=== PATIENT | female | born 1970 | race African-American/Black ===

== ENCOUNTER 2025-04-08 09:13 | Emergency (ER) | payer OTHER, SELFPAY ==
[2025-04-08] VITALS (8 sets, daily range): BP systolic 143–228; BP diastolic 69–103; PULSE 60–80; RESP 16–18; TEMP 36.6; O2SAT 97–100; BMI 42.0
--- NOTE | 2025-04-08 09:20 | EKG12_ITS ---
Test Reason : CP Blood Pressure : */* mmHG Vent. Rate : 77 BPM Atrial Rate : 77 BPM P-R Int : 134 ms QRS Dur : 78 ms QT Int : 380 ms P-R-T Axes : 26 -13 12 degrees QTcB Int : 430 ms Normal sinus rhythm Minimal voltage criteria for LVH, may be normal variant ( R in aVL ) Cannot rule out Anterior infarct , age undetermined Abnormal ECG Confirmed by ROHAN RODRIGUEZ MD ([id number]), assistant editor ASIA SOSA ([id number]) on 04/12/2025 7:49:25 AM Referred By: Confirmed By: ROHAN RODRIGUEZ MD
--- NOTE | 2025-04-08 09:42 | EDS_ITS ---
HPI History of Present Illness Chief Complaint: Chest Pain Narrative Narrative: Patient is a 54-year-old female presenting to the emergency department for chest pain that started last night around 3 or 4 AM. Patient has a past medical history of diabetes. Denies any history of high blood pressure or hyperlipidemia. Denies any PE or DVT history. Denies any cardiac history for herself. States that the pain is midsternal. It does not radiate anywhere. She describes it as dull. She endorses some mild shortness of breath with it as well. She denies diaphoresis, nausea, vomiting. Denies any lower extremity edema. Denies abdominal pain. States that she has never had this chest pain before. She took ibuprofen. [facility] Home Medications ?Medication ?Instructions ?Recorded ?Last Taken ?Type clindamycin HCl 300 mg capsule 300 mg PO Q6H ##40 11/12 Unknown Rx (Cleocin HCl) hydrocodone-acetaminophen 5-325mg 1 - 2 tab PO Q4H PRN PRN Pain ##12 06/03/16 Unknown Rx 5mg-325mg Allergy/AdvReac Type Severity Reaction Status Date / Time No Known Allergies Allergy Verified 04/08/25 09:14 Social History Smoking Status: Current every day smoker tobacco type: e-cigarettes ROS ROS ED ROS Narrative see HPI EXAM Physical Exam Narrative Exam Narrative: Vital signs: Reviewed General: Alert and oriented x 3. No acute distress HEENT: Head is normocephalic and atraumatic, sinuses nontender, pupils equal round and reactive. Nares are patent. Oropharynx and throat exams normal. Neck: Supple without lymphadenopathy nontender Cardiovascular: Regular rate and rhythm, no murmurs. No rubs or gallops. Normal S1 and S2 Chest: No reproducible chest pain to palpation Respiratory: Clear to auscultation bilaterally. No wheezes, rales, rhonchi Abdominal: Soft and nontender. Normal bowel sounds. No guarding or rebound. Nonsurgical abdomen Extremities: No lower extremity edema. No tenderness. No bruising. Normal range of motion. Normal sensation. Skin: No rash or redness. Neurological: Cranial nerves II through XII are grossly intact. Normal strength and sensation. Normal cerebellar function The rest of the physical exam is unremarkable Const Vital Signs: 04/08/25 09:14 04/08/25 10:13 04/08/25 10:32 Temperature 97.9 F Temperature Source Oral Pulse Rate 80 80 Respiratory Rate 16 16 Blood Pressure 174/103 H 228/100 H 170/69 H Blood Pressure Mean 126 142 102 Pulse Ox 100 100 Oxygen Delivery Method Room Air Room Air 04/08/25 10:46 04/08/25 12:00 04/08/25 12:32 Temperature Temperature Source Pulse Rate 60 61 Respiratory Rate 17 Blood Pressure 188/81 H 190/76 H 174/75 H Blood Pressure Mean 116 114 108 Pulse Ox 97 100 Oxygen Delivery Method Room Air Room Air 04/08/25 13:23 04/08/25 13:40 Temperature 97.9 F Temperature Source Pulse Rate 65 72 Respiratory Rate 18 16 Blood Pressure 143/72 H 143/72 H Blood Pressure Mean 95 95 Pulse Ox 98 98 Oxygen Delivery Method Room Air Heart Score History: Slightly/Non-Suspicious ECG: Normal Age: >45 - <65 years Risk Factors: 1 or 2 Risk Factors Troponin: </= Normal Limit Score: 2 MDM MDM MDM Narrative Medical decision making narrative: Patient is a 54-year-old female presenting to the emergency department for chest pain. Patient was seen and examined. Vitals are stable. Patient resting in bed comfortably no acute distress. Patient offered analgesia but she declines. Differential includes but is not limited to: ACS, pleurisy, pneumonia, less likely PE or aortic pathology. EKG shows normal sinus rhythm with LVH. No ischemic changes noted. No dysrhythmia noted. CBC with no leukocytosis and normal hemoglobin. CMP with no significant abnormalities. Normal kidney function. Initial troponin is less than 6. Reflex less than 6. While the patient was here her blood pressure did increase to 228/100. Given her chest pain in addition to this high blood pressure reading, I will obtain additional imaging and labs to rule out any hypertensive emergency. 5 mg metoprolol IV was given and she was again offered pain medication but declined when nurse went to give the fentanyl. Urinalysis with no evidence of UTI. Urine negative. Urine drug screen negative. CT of the brain with no acute intracranial abnormality. Enlarged, empty sella turcica. This can be seen with elevated intracranial pressure such as pseudotumor cerebri or idiopathic intracranial hypertension. Correlate with physical exam, history. Patient with no current headache or visual changes. Not consistent with exam. CTA chest/abdomen/pelvis shows no arterial occlusion or significant stenosis of the chest, abdomen or pelvis. No aortic dissection. No aortic aneurysm. Several mildly prominent mesenteric and ileocecal lymph nodes are nonspecific and can be seen in the setting of mesenteric adenitis, enteritis, among others. Patient was reevaluated. Overall her workup shows no evidence of hypertensive emergency. Blood pressure is now controlled. BP of 143/72. Patient was notified of the incidental findings on CT brain and CT abdomen pelvis. Negative for causes of her chest pain. I advised patient to follow-up with her primary care doctor as soon as possible to discuss possible initiation of antihypertensives. Patient states she has a appointment this week. Patient discharged from the Emergency Department. I do not feel that the patient's evaluation reveals any acute reason for admission at this time. I instructed them to either follow-up with their primary care physician or promptly return to the Emergency Department for reevaluation should symptoms worsen or new symptoms develop. I explained what symptoms would indicate the need to return to the emergency department. Shared decision making was used. The patient voiced understanding of the treatment plan and is agreeable with it. Clinical impression: Chest pain History & Record Review Discussion w/independent historian: Patient Lab Data Attestation: I reviewed the patient's lab results. Labs: Laboratory Results - last 24 hr 04/08/25 04/08/25 04/08/25 09:33 11:45 11:55 WBC 8.5 RBC 4.67 Hgb 13.1 Hct 39.0 MCV 83.5 MCH 28.1 MCHC 33.6 RDW Std Deviation 40.1 RDW Coeff of Rosie 13.2 Plt Count 272 MPV 11.5 Immature Gran % (Auto) 0.200 Neut % (Auto) 62.4 Lymph % (Auto) 26.7 [place] % (Auto) 7.6 Eos % (Auto) 2.6 Baso % (Auto) 0.5 Absolute Neuts (auto) 5.3 Absolute Lymphs (auto) 2.28 Nucleated RBC % 0 Sodium 143 Potassium 3.5 Chloride 106 Carbon Dioxide 27.6 Anion Gap 9 BUN 11 Creatinine 0.93 Estim Creat Clear Calc 88.47 Est GFR (MDRD) Non-Af 74 BUN/Creatinine Ratio 11.9 Glucose 112 H Calcium 9.1 Total Bilirubin 0.27 Direct Bilirubin 0.11 AST 16 ALT 15 Alkaline Phosphatase 76 Troponin T High Sens < 6 Troponin T Hi Sens 2 Hr < 6 Total Protein 7.3 Albumin 4.3 Globulin 3.0 Urine Color Yellow Urine Clarity Clear Urine pH 6.0 Ur Specific [place] 1.020 Urine Protein 30 H Urine Glucose (UA) Normal Urine Ketones Negative Urine Occult Blood Negative Urine Nitrite Negative Urine Bilirubin Negative Urine Urobilinogen Normal Ur Leukocyte Esterase Negative Urine RBC 0 SEEN Urine WBC 0-5 SEEN Ur Squamous Epith Cells 0-5 SEEN Urine Bacteria 1+ Urine Mucus 0 SEEN Urine Test Negative Urine Opiates Screen NEGATIVE U Buprenorphine Qual NEGATIVE Ur Oxycodone Screen NEGATIVE Urine Methadone Screen NEGATIVE Urine Fentanyl Screen NEGATIVE Ur Barbiturates Screen NEGATIVE Ur Phencyclidine Scrn NEGATIVE Ur Amphetamines Screen NEGATIVE U Benzodiazepines Scrn NEGATIVE Urine Cocaine Screen NEGATIVE U Cannabinoids Screen NEGATIVE Radiography Diagnostic Testing: Clinical Impression(s) from Imaging Studies Chest X-Ray 04/08/25 09:55 IMPRESSION: No acute abnormality Reading Location: [facility] Brain CT 04/08/25 11:24 IMPRESSION: 1. No acute intracranial abnormality. 2. Enlarged, empty sella turcica. This can be seen with elevated intracranial pressure such as pseudotumor cerebri or idiopathic intracranial hypertension. Correlate with physical exam, history. Reading Location: [facility] Chest/Abdomen/Pelvis CTA 04/08/25 11:24 IMPRESSION: 1. No arterial occlusion or significant stenosis of the chest, abdomen or pelvis. No aortic dissection. No aortic aneurysm. 2. Several mildly prominent mesenteric and ileocecal lymph nodes are nonspecific and can be seen in the setting of mesenteric adenitis, enteritis, among others. Reading Location: [id number] Discharge Plan Triage Chief Complaint: Chest Pain ED Provider: Kimberly Deshpande Dx/Rx/DC Orders Clinical Impression: Chest pain of uncertain etiology, High blood pressure Instructions: Hypertension Dc, ED Chest Pain, Uncertain Cause Prescriptions: No Action clindamycin HCl [Cleocin HCl] 300 MG capsule 300 mg PO Q6H Qty: 40 0RF hydrocodone-acetaminophen 1 TABLET tablet 1 - 2 tab PO Q4H PRN PRN (Reason: Pain) Qty: 12 0RF Primary Care Provider: Gunnar Griffith Referrals: Gunnar Griffith, [Primary Care Provider, Medical] - As soon as possible Activity Restrictions/Additional Instructions: Follow-up with your primary care doctor soon as possible to discuss possibly starting you on a blood pressure medication if you continue to be hypertensive. Your evaluation in the Emergency Department did not reveal any acute reason for admission. However, I want to emphasize that you may be early in the course of a disease process or illness even if it is not present. For this reason you should follow-up within 24 hours for reevaluation with either your primary care physician or if necessary back here in the Emergency Department. You should return to the Emergency Department immediately if your symptoms worsen or new symptoms develop. You also had incidental findings on your imaging as below: Several mildly prominent mesenteric and ileocecal lymph nodes are nonspecific and can be seen in the setting of mesenteric adenitis, enteritis, among others. Enlarged, empty sella turcica. This can be seen with elevated intracranial pressure such as pseudotumor cerebri or idiopathic intracranial hypertension. Correlate with physical exam, history. Print Language: Cambodian Disposition Disposition: Home, Self Care Discharge Date/Time: 04/08/25 13:50
[2025-04-08 09:55] LABS: Hematocrit 39.0 % (37-47); Hemoglobin 13.1 g/dL (12.0-15.0); Immature Granulocytes Count 0.020 X10^3/uL (0.0-0.0); Mean Corp Hgb Conc 33.6 g/dL (32-36); Mean Corpuscular Volume 83.5 fL (81-99); Mean Platelet Vol. 11.5 fl (6.2-12.0); NRBC Flagged by Analyzer 0 % (0-5); Platelet Count 272 K/mm3 (150-450); RBC Distribution Width CV 13.2 % (11.6-14.6); RBC Distribution Width SD 40.1 fl (35.1-43.9); Red Blood Count 4.67 M/mm3 (4.2-5.4); White Blood Count 8.5 K/mm3 (4.4-11.0)
--- NOTE | 2025-04-08 09:55 | RAD_ITS ---
PROCEDURE: CHEST PA AND LATERAL 04/08/2025 REASON FOR EXAM: CHEST PAIN TECHNIQUE: Procedure Code: RADCXR Modality: DX Procedure: CHEST PA AND LATERAL COMPARISON: None FINDINGS: Hardware: EKG leads Heart: Normal Mediastinum: The mediastinal contour is unremarkable. Lungs: The lungs are clear. Bones: The bones are unremarkable. RAD/Chest PA and Lateral IMPRESSION: No acute abnormality Reading Location: [id number]
[2025-04-08 10:14] LABS: Anion Gap 9 (5-15); BUN 11 mg/dL (4-19); BUN/Creat Ratio 11.9 RATIO (10-20); Calcium,Total 9.1 mg/dL (7.6-11.0); Carbon Dioxide 27.6 mmol/L (21.0-32.0); Chloride 106 mmol/L (98-108); Estimated Creatinine Clearance 88.47 ml/min (50-250); Glucose 112 mg/dL (70-99); Potassium 3.5 mmol/L (3.3-5.1); Troponin T High Sensitivity < 6 ng/L (<=14)
[2025-04-08 10:53] LABS: AST(SGOT) 16 U/L (<=31); Alanine Aminotransfer ALT/SGPT 15 U/L (<=34); Albumin, Serum 4.3 g/dL (3.5-5.0); Alkaline Phosphatase 76 U/L (35-104); Bilirubin, Direct 0.11 mg/dL (0.00-0.30); Globulin 3.0 g/dL (2.2-4.2)
--- NOTE | 2025-04-08 11:24 | CT_ITS ---
PROCEDURE: BRAIN/HEAD WITHOUT CONTRAST 04/08/2025 REASON FOR EXAM: HYPERTENSION, RULE OUT END ORGAN DAMAGE TECHNIQUE: Procedure Code: CTBR Modality: CT Procedure: BRAIN/HEAD WITHOUT CONTRAST Coronal and Sagittal reconstruction series were provided. One or more dose reduction techniques were used (e.g., Automated exposure control, adjustment of the mA and/or kV according to patient size, use of iterative reconstruction technique. RADIATION DOSE SUMMARY: CTDlvol: 45 mGy DLP: 796 mGycm COMPARISON: None FINDINGS: Brain: There is no evidence of hemorrhage, acute ischemia or mass. No extra- axial fluid collection, midline shift or mass effect. CSF Spaces: Enlarged empty sella turcica. No hydrocephalus. Prominent CSF space superior to the cerebellum. Vermis is intact. Sinuses/Mastoids: Clear Bones: No fracture CT/Brain/Head without Contrast IMPRESSION: 1. No acute intracranial abnormality. 2. Enlarged, empty sella turcica. This can be seen with elevated intracranial pressure such as pseudotumor cerebri or idiopathic intracranial hypertension. Correlate with physical exam, history. Reading Location: [id number]
--- NOTE | 2025-04-08 11:24 | CT_ITS ---
PROCEDURE: CTA CHST, ABD, PEL W/ CON 04/08/2025 REASON FOR EXAM: CHEST PAIN, HYPERTENSION, RULE OUT DISSECTION TECHNIQUE: Procedure Code: CTCTA.CHAP.2 Modality: CT Procedure: CTA CHST, ABD, PEL W/ CON MIP reconstruction series were provided. One or more dose reduction techniques were used (e.g., Automated exposure control, adjustment of the mA and/or kV according to patient size, use of iterative reconstruction technique. CONTRAST: Isovue 370 VOLUME: 100 mL RADIATION DOSE SUMMARY: CTDlvol: 44.99, 14.25, 20.33 mGy DLP: 2124 mGycm COMPARISON: None. FINDINGS: VASCULATURE: Aorta: No acute finding. No aortic aneurysm. No dissection. Minimal scattered calcified atherosclerosis. Pulmonary arteries: The pulmonary arteries are adequately opacified. No pulmonary embolism. Great vessels of aortic arch: No acute finding. No dissection. No arterial occlusion or significant stenosis. Celiac trunk: No acute finding. No occlusion or significant stenosis. Superior mesenteric artery: No acute finding. No occlusion or significant stenosis. Inferior mesenteric artery: No acute finding. No occlusion or significant stenosis. Renal arteries: No acute finding. No occlusion or significant stenosis. Iliac arteries: No acute finding. No occlusion or significant stenosis. CHEST: Lungs: No mass. No consolidation. Minimal dependent atelectasis bilaterally. Pleural spaces: No pleural effusion. No pneumothorax. Heart: Mild cardiomegaly. No significant pericardial effusion. Mediastinum/Hilum: No significant lymphadenopathy. Soft tissues: The soft tissues are unremarkable. Bones: No acute osseous abnormality. ABDOMEN/PELVIS: Liver: Unremarkable. No mass. Gallbladder and bile ducts: Prior cholecystectomy. No ductal dilation. Pancreas: Unremarkable. No ductal dilation. Spleen: Unremarkable. Adrenals: No mass. Kidneys and ureters: The kidneys enhance symmetrically. Right renal cortical scarring. No hydronephrosis. No solid mass. Stomach and bowel: No obstruction or perforation. No bowel wall thickening. No CT evidence of acute diverticulitis. Appendix: The appendix is within normal limits. Pelvic organs: Unremarkable as visualized. Retro/Peritoneum: No free fluid. No free air. Lymph nodes: Several mildly prominent mesenteric and ileocecal lymph nodes. The largest is 1.2 x 2.3 cm. Soft tissues: The soft tissues are unremarkable. Bones: No acute osseous abnormality. Moderate hip joint space narrowing bilaterally. Bilateral L5-S1 facet arthropathy, greater on the right. CT/CTA Chst, Abd, Pel W and/or WO IMPRESSION: 1. No arterial occlusion or significant stenosis of the chest, abdomen or pelv is. No aortic dissection. No aortic aneurysm. 2. Several mildly prominent mesenteric and ileocecal lymph nodes are nonspecif ic and can be seen in the setting of mesenteric adenitis, enteritis, among others. Reading Location: [id number]
[2025-04-08 12:02] LABS: Mucous, Urine 0 SEEN /hpf (<or=2+); Red Blood Cells-Urine 0 SEEN /hpf (0-5)
[2025-04-08 12:06] LABS: Color, Urine Yellow (Yellow); Glucose, Dipstick Normal (Normal); Ketone-Dipstick Negative (Negative); Leukocyte Esterase-Dipstick Negative /ul (Negative); Nitrite-Dipstick Negative (Negative); Occult Blood-Urine Negative /ul (Negative); Protein-Dipstick 30 mg/dl (Negative); Specific Gravity, Urine 1.020 (1.002-1.030); Urine Bilirubin Dipstick Negative (Negative)
[2025-04-08 12:20] LABS: Troponin T High Sens 2 HR < 6 ng/L (<=14)
[2025-04-08 12:22] LABS: Barbiturate Urine NEGATIVE (< 200 ng/mL); Benzodiazepine Urine NEGATIVE (< 200 ng/mL); PCP Urine NEGATIVE (< 25 ng/mL); THC Urine NEGATIVE (< 50 ng/mL)
[2025-04-08 12:25] LABS: Internal QC Validated? YES +Cl - CLEAR BKGD; Pregnancy, Urine Negative Negative; Record Kit Lot#,Urine Preg 980607; Squamous Epithelial Cells - UA 0-5 SEEN /hpf (5-10)
== END 2025-04-08 13:50 | disposition home or self-care (01) ==
PROVIDERS: Emergency Provider Student in an Organized Health Care Education/Training Program; PCP Student in an Organized Health Care Education/Training Program; Visit Provider Student in an Organized Health Care Education/Training Program
DX: R07.9 Chest pain, unspecified (principal); E11.9 Type 2 diabetes mellitus without complications; R06.02 Shortness of breath; R03.0 Elevated blood-pressure reading, without diagnosis of hypertension; F17.290 Nicotine dependence, other tobacco product, uncomplicated
CPT/HCPCS: 70450; 71046; 71275; 74174; 80048; 80076; 80307; 81001; 81025; 84484; 85025; 93005; 96374; 99284; Q9967; A4216

== ENCOUNTER 2025-04-11 02:41 | Emergency (ER) | payer OTHER, SELFPAY ==
[2025-04-11] VITALS (11 sets, daily range): BP systolic 107–192; BP diastolic 58–94; PULSE 68–86; RESP 16–18; TEMP 36.6–36.7; O2SAT 97–100; BMI 42.8
--- NOTE | 2025-04-11 03:01 | EX.ED.DYSGE1 ---
HPI History of Present Illness Chief Complaint: Chest Pain Informant: patient Narrative Narrative: Patient is a 54-year-old female who reports a past medical history of diabetes but states she is not on medication for it. She was seen on April 08 for chest discomfort and at that time had normal EKG 2 normal troponins and a normal CTA of the chest abdomen and pelvis. She states she was feeling better. However this evening she was driving on her way to work and noticed a mild amount of midsternal chest pain. She states that she works nights and was on her way to work around midnight. She states once at work the symptoms persisted. She states there is been no trauma or excessive activity. She denies any associated nausea vomiting diaphoresis or shortness of breath. She states there is no recent travel or surgery and she denies any history of DVT/PE. However due to the recurrent discomfort she presents for evaluation. [facility] Medical History Diabetes Home Medications ?Medication ?Instructions ?Recorded ?Last Taken ?Type desvenlafaxine succinate 100 mg 100 mg PO DAILY 04/11/25 Unknown History tablet,extended release 24 hr ibuprofen 800 mg tablet 800 mg PO Q8H PRN PRN pain 04/11/25 Unknown History Allergy/AdvReac Type Severity Reaction Status Date / Time No Known Allergies Allergy Verified 04/11/25 02:41 Surgical History (Updated 04/11/25 @ 02:46 by Sharifa Desir) Hx of cholecystectomy Social History Smoking Status: Current every day smoker tobacco type: e-cigarettes ROS ROS ED Constitutional Constitutional ED: Denies chills or fever(s) Eyes Eyes: Denies blurry vision or change in vision ENT ENT ED: Denies sore throat Cardiovascular Cardiovascular: Reports chest pain; Denies palpitations or racing heartbeat Respiratory/Chest Respiratory/Chest: Denies cough or dyspnea Gastrointestinal Gastrointestinal: Denies abdominal pain, diarrhea, nausea or vomiting Musculoskeletal Musculoskeletal: Denies back pain Integumentary Denies rash Neurologic Neurologic: Denies headache(s) Hematologic/Lymphatic Hematologic/Lymphatic: Denies easy bleeding or easy bruising EXAM Physical Exam Const Vital Signs: 04/11/25 02:42 04/11/25 02:45 04/11/25 02:45 Temperature 98.1 F Temperature Source Oral Pulse Rate 86 70 Respiratory Rate 18 16 Respiratory Effort Normal Non-Labored Respiratory Pattern Normal Blood Pressure 157/91 H 192/85 H Blood Pressure Mean 113 120 Pulse Ox 97 99 Oxygen Delivery Method Room Air Room Air 04/11/25 03:00 04/11/25 03:30 04/11/25 03:45 Temperature Temperature Source Pulse Rate 69 73 68 Respiratory Rate 16 16 16 Respiratory Effort Respiratory Pattern Blood Pressure 183/86 H 144/58 H 137/69 H Blood Pressure Mean 118 86 91 Pulse Ox 99 100 100 Oxygen Delivery Method Room Air Room Air Room Air 04/11/25 04:00 04/11/25 04:15 04/11/25 04:45 Temperature Temperature Source Pulse Rate 80 77 74 Respiratory Rate 16 18 16 Respiratory Effort Respiratory Pattern Blood Pressure 142/63 H 107/61 163/94 H Blood Pressure Mean 89 76 117 Pulse Ox 100 99 100 Oxygen Delivery Method Room Air Room Air 04/11/25 04:47 04/11/25 05:00 04/11/25 05:34 Temperature 98 F Temperature Source Pulse Rate 72 75 78 Respiratory Rate 16 16 18 Respiratory Effort Respiratory Pattern Blood Pressure 169/72 H 169/67 H 161/60 H Blood Pressure Mean 104 101 93 Pulse Ox 100 100 99 Oxygen Delivery Method Room Air Room Air Positive well nourished, well developed and obese General Appearance ED: well developed; Negative for pallor Nutritional Appearance: obese HEENT HEENT Narrative: Normocephalic atraumatic Eyes PERRL and EOMs intact bilaterally General Eye ED: Negative for scleral icterus Neck supple and no JVD Neck Narrative: No nuchal rigidity or meningeal signs Chest Wall palpation of chest normal Chest Narrative: No bony deformity or subcutaneous emphysema noted Resp normal respiratory effort and clear to auscultation bilaterally Cardio regular rate and regular rhythm Rate: other Other Details: Heart is regular rate and rhythm without murmurs rubs or gallop Radial and carotid pulses are equal and symmetric No carotid bruit noted GI normal to inspection, nondistended, normoactive bowel sounds, non-tender, non-distended and no masses GI Narrative: No voluntary guarding or rigidity or pulsatile mass. No peritoneal signs Auscultation: normoactive bowel sounds Palpation: soft Extremity normal to inspection Extremity Narrative: No asymmetric edema no pitting edema negative Homans' sign bilaterally Neuro oriented x3, CN's II-XII intact bilaterally and no sensory deficits noted Sensorium / Orientation: alert Motor Exam: strength 5/5 throughout Psych Psych Narrative: Patient has a depressed/flat/tearful affect Mood & Affect: depressed and tearful Skin no rashes or lesions noted and no wounds General Skin Exam: Negative for jaundice or pallor MDM MDM MDM Narrative Medical decision making narrative: Patient arrived to the ER hypertensive but reports no past medical history of this. She was seen on April 08 for the same complaint and at that time she had 2 normal troponins as well as a normal CTA of the chest abdomen pelvis. She states she was feeling better but on her way to work this evening developed this midsternal chest discomfort. She denied trauma going against a sternal injury. The patient denied any nausea vomiting diaphoresis shortness of breath associated with this. However based on her age obesity and known history of diabetes she does have risk factors for cardiovascular disease. Therefore I did feel prudent that a repeat EKG and cardiac workup was obtained. As she is not coughing I have low concern for lung pathology and did not feel the need to repeat a chest x-ray or CT scan as these were just done 3 days ago. The patient's workup revealed initial troponin of 11 with delta of 10 which are not clinically significant. Moreover she had spontaneous resolution of her pain while in the ER. The patient had intermittent spikes in her blood pressure. It is unknown if this is truly hypertension or is this from her stress and activity. However she does not have signs of endorgan damage such as acute kidney injury and acute CVA or hypertensive encephalopathy and cardiac workup today is negative going against hypertension emergency. Therefore with a negative cardiac workup and resolution of pain I do not feel the need for further intervention. Patient to follow-up with her family doctor to discuss further outpatient cardiac testing such as stress test and/or echo as well as blood pressure monitoring to decide if she truly needs treatment for this. The plan of care was discussed with the patient who is agreeable to it and therefore she is otherwise safe for discharge History & Record Review Discussion w/independent historian: Patient Additional record(s) reviewed:: Prior ED visit and Prior labs Lab Data Attestation: I reviewed the patient's lab results. Labs: Laboratory Results - last 24 hr 04/11/25 04/11/25 02:48 04:45 WBC 8.5 RBC 4.68 Hgb 13.1 Hct 39.2 MCV 83.8 MCH 28.0 MCHC 33.4 RDW Std Deviation 40.4 RDW Coeff of Rosie 13.2 Plt Count 274 MPV 11.6 Immature Gran % (Auto) 0.400 Neut % (Auto) 69.7 Lymph % (Auto) 20.7 [place] % (Auto) 6.6 Eos % (Auto) 2.2 Baso % (Auto) 0.4 Absolute Neuts (auto) 5.9 Absolute Lymphs (auto) 1.75 Nucleated RBC % 0 Sodium 140 Potassium 3.3 Chloride 103 Carbon Dioxide 24.9 Anion Gap 12 BUN 13 Creatinine 0.76 Estim Creat Clear Calc 109.36 Est GFR (MDRD) Non-Af 93 BUN/Creatinine Ratio 16.9 Glucose 134 H Calcium 9.1 Magnesium 2.1 Troponin T High Sens 11 D Troponin T Hi Sens 2 Hr 10 TSH 3.710 Discharge Plan Triage Chief Complaint: Chest Pain ED Provider: Dominick Levy Dx/Rx/DC Orders Clinical Impression: Chest pain of uncertain etiology, High blood pressure, Diabetes mellitus Instructions: ED Chest Pain, Uncertain Cause, ED Hypertension, To Be Confirmed Prescriptions: No Action ibuprofen 800 mg tablet 800 mg PO Q8H PRN PRN (Reason: pain) desvenlafaxine succinate 100 mg tablet extended release 24 hr 100 mg PO DAILY Primary Care Provider: Gunnar Griffith Referrals: Gunnar Griffith DO [Primary Care Provider, Medical] Activity Restrictions/Additional Instructions: Your workup today did not reveal any sign of abnormal heart rhythm or active heart damage. Please follow-up with your family doctor to discuss need for outpatient stress test and/or echo to further evaluate your symptoms. Please also keep a blood pressure journal to track your blood pressure and heart rate in that way your family doctor will know if you need to start medication or not. Please return to the ER should you have any further concerns Print Language: Armenian Disposition Disposition: Home, Self Care Discharge Date/Time: 04/11/25 05:35
[2025-04-11 03:08] LABS: Hematocrit 39.2 % (37-47); Hemoglobin 13.1 g/dL (12.0-15.0); Immature Granulocytes Count 0.030 X10^3/uL (0.0-0.0); Mean Corp Hgb Conc 33.4 g/dL (32-36); Mean Corpuscular Volume 83.8 fL (81-99); Mean Platelet Vol. 11.6 fl (6.2-12.0); NRBC Flagged by Analyzer 0 % (0-5); Platelet Count 274 K/mm3 (150-450); RBC Distribution Width CV 13.2 % (11.6-14.6); RBC Distribution Width SD 40.4 fl (35.1-43.9); Red Blood Count 4.68 M/mm3 (4.2-5.4); White Blood Count 8.5 K/mm3 (4.4-11.0)
[2025-04-11 03:39] LABS: Anion Gap 12 (5-15); BUN 13 mg/dL (4-19); BUN/Creat Ratio 16.9 RATIO (10-20); Calcium,Total 9.1 mg/dL (7.6-11.0); Carbon Dioxide 24.9 mmol/L (21.0-32.0); Chloride 103 mmol/L (98-108); Estimated Creatinine Clearance 109.36 ml/min (50-250); Glucose 134 mg/dL (70-99); Magnesium 2.1 mg/dL (1.5-2.2); Potassium 3.3 mmol/L (3.3-5.1); Troponin T High Sensitivity 11 ng/L (<=14)
[2025-04-11 05:04] LABS: Troponin T High Sens 2 HR 10 ng/L (<=14)
== END 2025-04-11 05:35 | disposition home or self-care (01) ==
PROVIDERS: Emergency Provider Emergency Medicine; PCP Student in an Organized Health Care Education/Training Program; Visit Provider Emergency Medicine
DX: R07.89 Other chest pain (principal); E11.9 Type 2 diabetes mellitus without complications; E66.9 Obesity, unspecified; R03.0 Elevated blood-pressure reading, without diagnosis of hypertension; F17.290 Nicotine dependence, other tobacco product, uncomplicated
CPT/HCPCS: 80048; 83735; 84443; 84484; 85025; 93005; 96374; 96376; 99282; A4216